=== PATIENT | male | born 1975 | race Caucasian/White ===

== ENCOUNTER → 2017-07-18 | Outpatient (CLI) | payer BC ==
[~2017-07-18] VITALS: Ht 167.6 cm; Wt 96.6 kg
[2017-07-18 06:30] VITALS: BP 141/95; PULSE 86
== END ==
LOC: COL.CARD 06:11
DX: R07.9 Chest pain, unspecified (principal)
CPT/HCPCS: A9502

== ENCOUNTER → 2018-06-19 | Outpatient (REF) | LOC: WSPT 11:02 | DX: Z01.89 Encounter for other specified special examinations (principal) ==